=== PATIENT | female | born 1970 | race Two or more races ===

== ENCOUNTER 2018-12-17 20:52 | Emergency (ER) | payer OTHER ==
[~2018-12-17] VITALS: Ht 167.6 cm; Wt 100.0 kg
[2018-12-17 20:54] VITALS: BP 190/112
== END 2018-12-17 22:36 | disposition left against medical advice (07) ==
LOC: ER 20:52
DX: M79.605 Pain in left leg (principal); Z53.21 Procedure and treatment not carried out due to patient leaving prior to being seen by health care provider